=== PATIENT | male | born 1930 | race Caucasian/White ===

== ENCOUNTER 2017-12-02 08:21 | Inpatient (IN) ==
[2017-12-02] MEDS ORDERED: Chlorhexidine Gluconate 2% 1 Pack (2 Cloths) TOPICAL ONE (09:15)
[2017-12-02] MEDS ORDERED: Metoprolol Tartrate 25 MG Tablet PO ONE (09:15)
[2017-12-02] MEDS ORDERED: Sodium Chlor 0.9% Inj 500 ML IV.CONT ONE ×2 (09:15→11:31)
[2017-12-02] MEDS ORDERED: ceFAZolin 2 GM IV; once IV.SIG SCH (09:15)
[2017-12-02 09:33] LABS: Baso % (Auto) 0.6 % (0.0-2.0); Hematocrit 46.5 % (39.0-51.0); Hemoglobin 15.6 gm/dL (13.0-17.0); Lymph # (Auto) 1.9 th/mm3 (1.0-4.8); Lymph % (Auto) 49.4 % (9.0-44.0); Mean Corpuscular HGB Conc 33.6 % (32.0-36.0); Mean Corpuscular Hemoglobin 31.7 pg (27.0-34.0); Mean Corpuscular Volume 94.4 fL (80.0-100.0); Mean Platelet Volume 7.1 fL (7.0-11.0); Mono # (Auto) 0.5 th/mm3 (0.0-0.9); Mono % (Auto) 13.1 % (0.0-8.0); Neut # (Auto) 1.4 th/mm3 (1.8-7.7); Neut % (Auto) 35.9 % (16.0-70.0); Platelet Count 183 th/mm3 (150-450); Red Blood Count 4.93 mil/mm3 (4.50-5.90); Red Cell Distribution Width 14.4 % (11.6-17.2); White Blood Count 3.8 th/mm3 (4.0-11.0)
[2017-12-02 09:45] LABS: Prothrombin Time 10.5 sec (9.8-11.6)
[2017-12-02 09:50] LABS: Calcium 9.4 mg/dL (8.5-10.1); Carbon Dioxide 20.6 meq/L (21.0-32.0); Potassium 4.3 meq/L (3.5-5.1)
[2017-12-02] MEDS ORDERED: Heparin 10,000 UNITS/10 ML Vial (for IV use) ONE (11:16)
[2017-12-02] MEDS ORDERED: Protamine Sulfate Inj 50 MG/5 ML Vial ONE (11:17)
[2017-12-02] MEDS ORDERED: Bupivacaine/Epinephrine 0.5% Inj 50 ML Vial ONE (11:17)
[2017-12-02] MEDS ORDERED: Lidocaine PF 1% Inj 5 ML Syringe OTHER ONE (11:31)
[2017-12-02] MEDS ORDERED: Sodium Chlor 0.9% Inj 250 ML IV.CONT ONE (11:31)
[2017-12-02] MEDS ORDERED: Phenylephrine/NS 1000 MCG/10ML Syringe IV.PUSH ONE (11:31)
[2017-12-02] MEDS ORDERED: Heparin - SQ 10,000 UNITS/ML Vial ONE (11:45)
[2017-12-02] MEDS ORDERED: Iohexol 300 MG/ML 50 ML Vial (for Rad Diag) IVCONTRAST ONE (13:55)
[2017-12-02] MEDS ORDERED: hydrALAZINE HCl Inj 20 MG/ML Vial IV.PUSH PRN (14:05)
--- NOTE | 2017-12-02 14:13 | P.BOP ---
- Preoperative Diagnosis (1) AAA (abdominal aortic aneurysm) without rupture - Postoperative Diagnosis (1) AAA (abdominal aortic aneurysm) without rupture Date of procedure: 12/02/17 Procedure: Percutaneous Endovascular Aneurysm Repair Anesthesia: GETA, local Surgeon: Mg Arteaga MD Estimated blood loss (mL): 50 Pathology: none sent Condition: stable Disposition: PACU
[2017-12-02] MEDS ORDERED: fentaNYL Citrate Inj 100 MCG/2 ML Ampul ONE (14:16)
--- NOTE | 2017-12-02 14:49 | ECG ---
Date Performed: 12/02/2017 Time Performed: 08:57:54 PTAGE: 87 years EKG: SINUS BRADYCARDIA BORDERLINE ECG NO PREVIOUS TRACING DOCTOR: Yoseph Reddy Interpretating Date/Time 12/02/2017 14:44:37
--- NOTE | 2017-12-02 18:14 | MB ---
cc: Mg Arteaag MD, Patricia J MD DATE: 12/02/2017 PREOPERATIVE DIAGNOSIS: Infrarenal abdominal aortic aneurysm - 6 cm maximal diameter. POSTOPERATIVE DIAGNOSIS: Infrarenal abdominal aortic aneurysm - 6 cm maximal diameter. OPERATIVE PROCEDURE: Percutaneous endovascular aneurysm repair. SURGEON: Mg Arteaga MD ANESTHESIA: General endotracheal/local. DESCRIPTION OF PROCEDURE: With the patient in the supine position, general endotracheal anesthesia was induced and the abdomen, both groins and thighs prepped with Betadine and draped in a sterile fashion. One gram of Ancef was administered intravenously, and following a protocol timeout, the skin and subcutaneous tissue surrounding both common femoral access sites were preemptively infiltrated with 0.5% Marcaine with epinephrine. Utilizing ultrasound guidance, 18 gauge needles were inserted into the right and left mid common femoral lumens, J wire was advanced under fluoroscopic guidance into the iliac arteries and the needle was exchanged for 7 [place] hemostatic sheaths, which were deployed over the J wires. Angled Glidewires were navigated into the suprarenal aorta. Perclose devices were prepositioned at the 10 and 2 o'clock positions in both the femoral access sites. The angled Glidewires were then exchanged over Berenstein catheters for Lunderquist wires, which were parked within the thoracic aorta. Then, 12 and 18 [place] hemostatic sheaths were deployed via the right and left femoral approaches respectively, followed by systemic heparinization with 5000 units, ACT measured in the 250s. Flush aortogram with a pigtail catheter inserted above the renal level accurately delineated the renal artery origins and allowed initial positioning of the main body endoprosthesis. The contralateral gate was engaged with an angled Glidewire and Berenstein catheter combination, followed by partial inflation of the balloon within and the prostatic limb to ensure appropriate endoluminal localization. This was followed by retrograde injection via the right femoral sheath, allowing accurate biiliac bifurcation identification and selection of the contralateral limb length. The contralateral limb was then deployed. Completion of the aortic deployment followed by balloon dilatation of the iliac and aortic seal zones and overlap areas with a compliant aortic balloon. A completion angiogram revealed a secure repair with no technical defects. The right and left femoral sheaths were then removed and hemostasis achieved with the predeployed Perclose devices. At the completion of the procedure, pedal pulses remained robust, easily palpable. The patient returned to the PACU in stable condition, having tolerated the procedure well. MD LIZBETH Martel/eunice , 04:46 PM , 04:57 PM
[2017-12-02] MEDS ORDERED: BRIMONIDINE EACH EYE SCH (21:00)
[2017-12-02] MEDS: Gabapentin 300 MG Capsule PO SCH (21:17)
[2017-12-02] MEDS: Famotidine 20 MG Tablet PO SCH (21:17)
[2017-12-03 04:08] VITALS: RESP 16; TEMP 97.4
[2017-12-03 07:39] VITALS: BP 150/70
[2017-12-03] MEDS ORDERED: Venlafaxine XR 75 MG Capsule PO SCH (09:00)
[2017-12-03] MEDS: Gabapentin 300 MG Capsule PO SCH (09:23)
[2017-12-03] MEDS: Famotidine 20 MG Tablet PO SCH (09:24)
[2017-12-03 09:54] VITALS: PULSE 56
--- NOTE | 2017-12-03 09:54 | P.PN ---
Subjective Interval history: Stable recovery. No pain. Voiding and ambulating. No cardio-resp sxs. Physical Exam Vital signs: Vital Signs 12/02/17 14:10 12/02/17 14:15 12/02/17 14:30 Temperature 97.5 F L Pulse Rate 65 63 60 Respiratory Rate 18 9 L 19 Blood Pressure 148/72 H 151/72 H 143/71 H Pulse Oximetry 95 95 94 L 12/02/17 14:45 12/02/17 15:00 12/02/17 15:30 Temperature 97.5 F L Pulse Rate 70 69 69 Respiratory Rate 10 L 12 16 Blood Pressure 146/74 H 143/77 H 153/79 H Pulse Oximetry 94 L 95 95 12/02/17 16:00 12/02/17 16:19 12/02/17 17:00 Temperature 98.2 F Pulse Rate 66 66 70 Respiratory Rate 18 Blood Pressure 155/77 H Pulse Oximetry 95 12/02/17 18:00 12/02/17 19:00 12/02/17 19:41 Temperature 98.5 F Pulse Rate 66 72 81 Respiratory Rate 16 Blood Pressure 155/79 H Pulse Oximetry 99 12/02/17 20:00 12/02/17 21:00 12/02/17 22:00 Temperature Pulse Rate 85 70 63 Respiratory Rate Blood Pressure Pulse Oximetry 99 12/02/17 22:15 12/02/17 23:00 12/03/17 00:00 Temperature 97.9 F Pulse Rate 65 69 Respiratory Rate 18 Blood Pressure 134/64 Pulse Oximetry 93 L 96 12/03/17 01:00 12/03/17 02:00 12/03/17 03:00 Temperature Pulse Rate 58 L 55 L 52 L Respiratory Rate Blood Pressure Pulse Oximetry 12/03/17 04:00 12/03/17 05:00 12/03/17 06:00 Temperature 97.4 F L Pulse Rate 56 L 52 L 53 L Respiratory Rate 16 Blood Pressure 116/72 Pulse Oximetry 96 12/03/17 07:30 Temperature 97.4 F L Pulse Rate 54 L Respiratory Rate 16 Blood Pressure 150/70 H Pulse Oximetry 96 Intake & Output 12/02/17 12/03/17 12/03/17 18:59 06:59 18:59 Intake Total 2520 / 2520 1480 / 1480 Output Total 2130 / 2130 1650 / 1650 Balance 390 / 390 -170 / -170 Weight 98.5 kg 102.1 kg Intake: IV 100 / 100 1000 / 1000 LR 1000 mL Inj 1,000 ML @ 250 1000 / 1000 mls/hr IV.CONT [facility] Rx#: [id number] Ancef Inj 1,000 MG In NS Inj 100 / 100 100 ML @ 200 mls/hr IV.SIG [facility] Rx#:[id number] Oral 720 / 720 480 / 480 Anesthesia Amount 1700 / 1700 Output: Urine 600 / 600 Estimated Blood Loss 30 / 30 Urine Amount (Catheter) 1500 / 1500 1650 / 1650 Indwelling Temp Sensing 1500 / 1500 1650 / 1650 Catheter Other: Date of Last Bowel Movement 12/01/17 12/02/17 Weight On Admission 98.5 kg - Urinary Catheter Management Indwelling Temp Sensing Catheter Cath placed during this visit: yes, but has since been removed by the nurse Reason for continuing: Decision to DC catheter Insertion date: 12/02/17 Insertion time: 12:05 Removal date: 12/03/17 Removal time: 05:40 Results - Labs CBC & Chem 7: 12/02/17 09:00 12/02/17 09:00 Laboratory Results - last 24 hr 12/02/17 09:00 Blood Type B Positive Antibody Screen Negative MTS Gel Crossmatch See Detail
[2017-12-03 09:59] VITALS: O2SAT 98
[2017-12-04] MEDS ORDERED: Non-Formulary Drug (Coq10 (Ubiquinol) [Coq10 (Ubiquinol)] 200 MG) PO SCH (09:00)
[2017-12-04] MEDS ORDERED: Non-Formulary Drug (Glucosamine Sulfate [Glucosamine] 500 MG) PO SCH (09:00)
== END 2017-12-03 11:50 | disposition home or self-care (01) ==
LOC: HSDI 08:21 → HCPC 16:15
PROVIDERS: ADMIT Surgery Vascular Surgery; ATTEND Surgery Vascular Surgery
DX: I71.4 Abdominal aortic aneurysm, without rupture